=== PATIENT | female | born 1990 | race African-American/Black ===

== ENCOUNTER 2016-06-17 22:56 | Emergency (ER) | payer OTHER ==
[~2016-06-17 22:56] MED LIST: [UNRECOGNIZED DRUG - REMARK]
== END 2016-06-18 00:48 | disposition home or self-care (01) ==
LOC: ER 22:56
PROC: 2W2TX4Z Dressing of Left Foot using Bandage (ICD-10-PCS; principal; 2016-06-17)
PROC: 2W2EX4Z Dressing of Right Hand using Bandage (ICD-10-PCS; 2016-06-17)
DX: T23.201A Burn of second degree of right hand, unspecified site, initial encounter (principal); T25.222A Burn of second degree of left foot, initial encounter; Y27.2XXA Contact with hot fluids, undetermined intent, initial encounter
CPT/HCPCS: 90471; 90714; 99283; A9270-GY